=== PATIENT | male | born 1970 | race Caucasian/White ===

== ENCOUNTER 2024-01-21 19:31 | Inpatient (IN) | payer MEDICAID, OTHER ==
[~2024-01-21] VITALS: Ht 170.2 cm; Wt 96.6 kg
[2024-01-21] MEDS: VANCOMYCIN HCL 1000 MG VL IR ONE (19:45)
[2024-01-21 20:05] VITALS: PULSE 107; RESP 22; O2SAT 98
[2024-01-21 20:22] LABS: Basophils # (auto) 0.2 10 ^3/uL (0-0.2); Basophils % (auto) 0.7 % (0.0-2.0); Eosinophils # (auto) 0.1 10 ^3/uL (0-0.8); Eosinophils % (auto) 0.5 % (0.0-7.0); Hematocrit 34.4 % (41.0-53.0); Hemoglobin 11.2 g/dL (13.5-17.5); Lymphocytes # (auto) 1.8 10 ^3/uL (0.4-5.4); Mean Corpuscular Hemoglobin 28.6 pg (28.0-32.0); Mean Corpuscular Hgb Conc. 32.6 g/dL (32.0-36.0); Mean Corpuscular Volume 87.7 fL (80.0-100.0); Monocytes # (auto) 1.1 10 ^3/uL (0-1.3); Neutrophils # (auto) 19.5 10 ^3/uL (1.6-8.6); Neutrophils % (auto) 85.8 % (37.0-80.0); Red Blood Cells 3.92 10^6/uL (4.5-5.90); Red Cell Distribution Width 13.1 % (11.8-14.3); White Blood Cell 22.7 10^3/uL (4.4-10.8)
[2024-01-21 20:39] LABS: Alanine Aminotransferase 12 U/L (7-40); Albumin 4.1 g/dL (3.2-4.8); Alkaline Phosphatase 116 U/L (46-116); Anion Gap 10 (5-15); Aspartate Aminotransferase 17 U/L (13-40); BUN/Creatinine Ratio 11.8 (10.0-20.0); Blood Urea Nitrogen 14 mg/dL (9-23); Calcium 9.2 mg/dL (8.5-10.1); Carbon Dioxide 21 mmol/L (20-30); Chloride 107 mmol/L (98-107); Glucose 161 mg/dL (74-106); Potassium 3.7 mmol/L (3.5-5.1); Sodium 138 mmol/L (136-145)
[2024-01-21 20:40] LABS: Bilirubin, Total 0.4 mg/dL (0.2-1.0); Total Protein 7.6 g/dL (5.7-8.2)
[2024-01-21] MEDS: InsuLIN REG 1unit/0.01ml Soln (100units/ml) IV ONE (21:32)
[2024-01-21] MEDS: SODIUM CHLORIDE 0.9% 1,000 ML IV ONE (21:40)
[2024-01-21] MEDS: CLINDAMYCIN 900MG IV 50 ML IV ONE (21:40)
[2024-01-21] MEDS ORDERED: ONDANSETRON HCL 4 MG/2 ML VIAL IV PRN (22:15)
[2024-01-21] MEDS ORDERED: DEXTROSE (50%) 50ML SYRG IV PRN (22:15)
[2024-01-21] MEDS ORDERED: DOCUSATE SOD 100 MG CAP PO PRN (22:15)
[2024-01-21] MEDS ORDERED: VANCOMYCIN PER PHARMACY 0 MG IV SCH (22:15)
[2024-01-21] MEDS ORDERED: ACETAMINOPHEN 325 MG TAB PO PRN (22:15)
[2024-01-21] MEDS ORDERED: MORPHINE SULFATE INJ 2 MG/ml SYRG IV PRN ×2 (22:15→23:00)
[2024-01-21] MEDS ORDERED: HYDROcodone-ACET 5/325MG TAB PO PRN (22:15)
[2024-01-21] MEDS: PIPERACILLIN-TAZOB 3.375GM 100 ML IV ONE (22:27)
[2024-01-21] MEDS ORDERED: NITROGLYCERIN 0.4 MG SL TAB SL PRN (23:00)
[2024-01-21] MEDS: VANCOMYCIN 1GM/200ML 200 ML IV ONE ×2 (23:20→23:46)
[2024-01-21] MEDS: SODIUM CHLORIDE 0.9% 1,000 ML IV SCH (23:46)
[2024-01-22] VITALS (10 sets, daily range): BP systolic 139–171; BP diastolic 70–96; PULSE 83–89; RESP 17–20; TEMP 97.7–98.6; O2SAT 95–98
[2024-01-22] MEDS ORDERED: guaiFENesin-DM 100/10mg/5ml SYR PO PRN (00:30)
[2024-01-22 01:29] LABS: Urine Bacteria None Seen /hpf (None Seen)
[2024-01-22 01:38] LABS: Urine Blood 1+ /uL (Negative); Urine Clarity Clear (Clear); Urine Color Light-Yellow (Yellow); Urine Protein, UAD 2+ (Negative); Urine Specific Gravity 1.027 (1.001-1.035); Urine Urobilinogen Normal (Negative); Urine WBC 1 /hpf (0 - 3)
[2024-01-22 05:46] LABS: Basophils # (auto) 0 10 ^3/uL (0-0.2); Basophils % (auto) 0.2 % (0.0-2.0); Eosinophils # (auto) 0.2 10 ^3/uL (0-0.8); Eosinophils % (auto) 1.2 % (0.0-7.0); Hematocrit 29.5 % (41.0-53.0); Hemoglobin 9.6 g/dL (13.5-17.5); Lymphocytes # (auto) 1.8 10 ^3/uL (0.4-5.4); Mean Corpuscular Hemoglobin 28.2 pg (28.0-32.0); Mean Corpuscular Hgb Conc. 32.5 g/dL (32.0-36.0); Mean Corpuscular Volume 86.6 fL (80.0-100.0); Monocytes # (auto) 1.1 10 ^3/uL (0-1.3); Monocytes % (auto) 7.1 % (0.0-12.0); Neutrophils # (auto) 11.9 10 ^3/uL (1.6-8.6); Neutrophils % (auto) 79.5 % (37.0-80.0); Red Blood Cells 3.41 10^6/uL (4.5-5.90); Red Cell Distribution Width 13.2 % (11.8-14.3)
[2024-01-22] MEDS: CLINDAMYCIN 600MG IV 50 ML IV SCH (05:55)
[2024-01-22 06:02] LABS: Albumin 3.2 g/dL (3.2-4.8); Alkaline Phosphatase 94 U/L (46-116); Anion Gap 11 (5-15); Aspartate Aminotransferase 18 U/L (13-40); BUN/Creatinine Ratio 12.3 (10.0-20.0); Blood Urea Nitrogen 13 mg/dL (9-23); Calcium 8.3 mg/dL (8.5-10.1); Carbon Dioxide 19 mmol/L (20-30); Chloride 109 mmol/L (98-107); Glucose 119 mg/dL (74-106); Potassium 3.5 mmol/L (3.5-5.1); Sodium 139 mmol/L (136-145)
[2024-01-22] MEDS: InsuLIN REG 1unit/0.01ml Soln (100units/ml) SC SCH ×2 (06:02→21:44)
[2024-01-22] MEDS: ACCU-CHEK COMFORT CURVE STRIP VI SCH (06:02)
[2024-01-22 06:03] LABS: Bilirubin, Total 0.3 mg/dL (0.2-1.0); Total Protein 5.9 g/dL (5.7-8.2)
[2024-01-22 06:05] LABS: Alanine Aminotransferase < 9 U/L (7-40)
[2024-01-22] MEDS: ENOXAPARIN SOD 40 MG/0.4 ML SYRINGE SC SCH (09:14)
[2024-01-22] MEDS: VANCOMYCIN 1GM/200ML 200 ML IV SCH (10:59)
[2024-01-22] MEDS: hydrALAZINE HCL 20 MG/ML VL IV ONE (11:00)
[2024-01-22] MEDS ORDERED: LISI-275 PO (11:53)
[2024-01-22] MEDS ORDERED: ATOR20TA PO (11:53)
[2024-01-22] MEDS ORDERED: EMPA1TAB3 PO (11:53)
[2024-01-22] MEDS ORDERED: ASPI325T6 PO (11:53)
[2024-01-23] VITALS (8 sets, daily range): BP systolic 145–172; BP diastolic 75–92; PULSE 78–90; RESP 17–20; TEMP 97.9–98.4; O2SAT 95–97
[2024-01-23 07:23] LABS: Basophils # (auto) 0 10 ^3/uL (0-0.2); Basophils % (auto) 0.2 % (0.0-2.0); Eosinophils # (auto) 0.2 10 ^3/uL (0-0.8); Eosinophils % (auto) 1.9 % (0.0-7.0); Hematocrit 31.2 % (41.0-53.0); Hemoglobin 10.2 g/dL (13.5-17.5); Lymphocytes % (auto) 15.7 % (10.0-50.0); Mean Corpuscular Hemoglobin 28.6 pg (28.0-32.0); Mean Corpuscular Hgb Conc. 32.9 g/dL (32.0-36.0); Mean Corpuscular Volume 87.1 fL (80.0-100.0); Monocytes # (auto) 0.9 10 ^3/uL (0-1.3); Monocytes % (auto) 7.3 % (0.0-12.0); Neutrophils # (auto) 9.6 10 ^3/uL (1.6-8.6); Neutrophils % (auto) 74.9 % (37.0-80.0); Red Blood Cells 3.58 10^6/uL (4.5-5.90); White Blood Cell 12.9 10^3/uL (4.4-10.8)
[2024-01-23 07:37] LABS: Albumin 3.2 g/dL (3.2-4.8); Alkaline Phosphatase 99 U/L (46-116); Anion Gap 8 (5-15); Aspartate Aminotransferase 18 U/L (13-40); BUN/Creatinine Ratio 13.8 (10.0-20.0); Bilirubin, Total 0.2 mg/dL (0.2-1.0); Blood Urea Nitrogen 12 mg/dL (9-23); Calcium 8.7 mg/dL (8.5-10.1); Carbon Dioxide 20 mmol/L (20-30); Chloride 110 mmol/L (98-107); Glucose 131 mg/dL (74-106); Potassium 3.7 mmol/L (3.5-5.1); Sodium 138 mmol/L (136-145)
[2024-01-23 07:43] LABS: Alanine Aminotransferase < 9 U/L (7-40)
[2024-01-23] MEDS: hydrALAZINE HCL 20 MG/ML VL IV ONE ×2 (09:17→13:09)
[2024-01-23] MEDS: LISINOPRIL 5 MG TAB PO SCH (09:17)
[2024-01-23] MEDS: PIPERACILLIN-TAZOB 3.375GM 100 ML IV SCH (15:28)
[2024-01-23] MEDS: DAKINS HALF STR 0.25% (NaHypochlorite) 473 ML TOPICAL SOL TOP SCH ×2 (17:43→21:48)
[2024-01-24] VITALS (8 sets, daily range): BP systolic 136–172; BP diastolic 70–92; PULSE 76–85; RESP 18–20; TEMP 98–98.8; O2SAT 95–100
[2024-01-24 06:51] LABS: Basophils # (auto) 0 10 ^3/uL (0-0.2); Basophils % (auto) 0.4 % (0.0-2.0); Eosinophils # (auto) 0.3 10 ^3/uL (0-0.8); Eosinophils % (auto) 2.5 % (0.0-7.0); Hematocrit 30.8 % (41.0-53.0); Hemoglobin 10.3 g/dL (13.5-17.5); Lymphocytes # (auto) 1.6 10 ^3/uL (0.4-5.4); Lymphocytes % (auto) 15.2 % (10.0-50.0); Mean Corpuscular Hgb Conc. 33.3 g/dL (32.0-36.0); Mean Corpuscular Volume 87.1 fL (80.0-100.0); Monocytes # (auto) 0.8 10 ^3/uL (0-1.3); Monocytes % (auto) 7.6 % (0.0-12.0); Neutrophils # (auto) 8.1 10 ^3/uL (1.6-8.6); Neutrophils % (auto) 74.3 % (37.0-80.0); Red Blood Cells 3.54 10^6/uL (4.5-5.90); Red Cell Distribution Width 12.9 % (11.8-14.3); White Blood Cell 10.8 10^3/uL (4.4-10.8)
[2024-01-24 07:36] LABS: Alanine Aminotransferase 12 U/L (7-40); Albumin 3.2 g/dL (3.2-4.8); Alkaline Phosphatase 98 U/L (46-116); Anion Gap 8 (5-15); Aspartate Aminotransferase 22 U/L (13-40); BUN/Creatinine Ratio 10.5 (10.0-20.0); Blood Urea Nitrogen 10 mg/dL (9-23); CRP High Sensitivity 5.84 mg/dL (<1.0); Calcium 8.7 mg/dL (8.5-10.1); Carbon Dioxide 21 mmol/L (20-30); Chloride 108 mmol/L (98-107); Glucose 179 mg/dL (74-106); Potassium 3.6 mmol/L (3.5-5.1); Sodium 137 mmol/L (136-145)
[2024-01-24 07:37] LABS: Bilirubin, Total 0.2 mg/dL (0.2-1.0)
[2024-01-24 07:38] LABS: Total Protein 6.1 g/dL (5.7-8.2)
[2024-01-24] MEDS: hydrALAZINE HCL 20 MG/ML VL IV PRN (08:13)
[2024-01-24] MEDS ORDERED: DAKINS HALF STR 0.25% (NaHypochlorite) 473 ML TOPICAL SOL TOP SCH (10:00)
[2024-01-24] MEDS: AMPICILLIN & SULBACTAM SODIUM 3 GM in SODIUM CHL 0.9% 100 ML IV SCH (13:22)
[2024-01-25] VITALS (7 sets, daily range): BP systolic 118–170; BP diastolic 53–90; PULSE 81–90; RESP 18–20; TEMP 98–99.1; O2SAT 94–95
[2024-01-25 06:42] LABS: Basophils # (auto) 0.1 10 ^3/uL (0-0.2); Basophils % (auto) 0.6 % (0.0-2.0); Eosinophils # (auto) 0.2 10 ^3/uL (0-0.8); Eosinophils % (auto) 1.9 % (0.0-7.0); Hematocrit 31.6 % (41.0-53.0); Hemoglobin 10.3 g/dL (13.5-17.5); Lymphocytes % (auto) 17.9 % (10.0-50.0); Mean Corpuscular Hemoglobin 28.2 pg (28.0-32.0); Mean Corpuscular Hgb Conc. 32.6 g/dL (32.0-36.0); Mean Corpuscular Volume 86.4 fL (80.0-100.0); Monocytes # (auto) 0.8 10 ^3/uL (0-1.3); Monocytes % (auto) 7.4 % (0.0-12.0); Neutrophils # (auto) 8.2 10 ^3/uL (1.6-8.6); Neutrophils % (auto) 72.2 % (37.0-80.0); Red Blood Cells 3.65 10^6/uL (4.5-5.90); White Blood Cell 11.3 10^3/uL (4.4-10.8)
[2024-01-25 06:46] LABS: Chloride 109 mmol/L (98-107); Potassium 3.8 mmol/L (3.5-5.1); Sodium 139 mmol/L (136-145)
[2024-01-25 06:47] LABS: Anion Gap 9 (5-15); Carbon Dioxide 21 mmol/L (20-30)
[2024-01-25 06:48] LABS: Calcium 8.6 mg/dL (8.5-10.1)
[2024-01-25 06:53] LABS: Blood Urea Nitrogen 13 mg/dL (9-23); Glucose 164 mg/dL (74-106)
[2024-01-25] MEDS: LISINOPRIL 20 MG TAB PO SCH (07:53)
[2024-01-26] VITALS (9 sets, daily range): BP systolic 144–170; BP diastolic 79–91; PULSE 82–87; RESP 16–20; TEMP 97.3–98.3; O2SAT 94–100
[2024-01-26 07:00] LABS: Basophils # (auto) 0 10 ^3/uL (0-0.2); Basophils % (auto) 0.3 % (0.0-2.0); Eosinophils # (auto) 0.2 10 ^3/uL (0-0.8); Eosinophils % (auto) 2.4 % (0.0-7.0); Hematocrit 28.3 % (41.0-53.0); Hemoglobin 9.5 g/dL (13.5-17.5); Lymphocytes # (auto) 1.9 10 ^3/uL (0.4-5.4); Lymphocytes % (auto) 18.1 % (10.0-50.0); Mean Corpuscular Hemoglobin 29.4 pg (28.0-32.0); Mean Corpuscular Hgb Conc. 33.5 g/dL (32.0-36.0); Mean Corpuscular Volume 87.5 fL (80.0-100.0); Monocytes # (auto) 0.8 10 ^3/uL (0-1.3); Monocytes % (auto) 7.8 % (0.0-12.0); Neutrophils # (auto) 7.3 10 ^3/uL (1.6-8.6); Neutrophils % (auto) 71.4 % (37.0-80.0); Red Blood Cells 3.23 10^6/uL (4.5-5.90); White Blood Cell 10.2 10^3/uL (4.4-10.8)
[2024-01-26 07:14] LABS: INR 1.1 (0.9-1.15); Partial Thromboplastin Time 30.6 SEC (24.5-34.5); Prothrombin Time 11.6 sec (9.3-11.8)
[2024-01-26 07:20] LABS: Anion Gap 8 (5-15); Carbon Dioxide 22 mmol/L (20-30); Chloride 108 mmol/L (98-107); Potassium 3.7 mmol/L (3.5-5.1); Sodium 138 mmol/L (136-145)
[2024-01-26 07:21] LABS: Calcium 8.4 mg/dL (8.5-10.1)
[2024-01-26 07:26] LABS: BUN/Creatinine Ratio 11.3 (10.0-20.0); Blood Urea Nitrogen 9 mg/dL (9-23); Glucose 139 mg/dL (74-106)
[2024-01-26 12:23] LABS: Basophils # (auto) 0.1 10 ^3/uL (0-0.2); Eosinophils # (auto) 0.2 10 ^3/uL (0-0.8); Eosinophils % (auto) 1.5 % (0.0-7.0); Hematocrit 29.5 % (41.0-53.0); Hemoglobin 9.8 g/dL (13.5-17.5); Lymphocytes # (auto) 1.6 10 ^3/uL (0.4-5.4); Lymphocytes % (auto) 16.1 % (10.0-50.0); Mean Corpuscular Hemoglobin 28.8 pg (28.0-32.0); Mean Corpuscular Hgb Conc. 33.1 g/dL (32.0-36.0); Mean Corpuscular Volume 86.7 fL (80.0-100.0); Monocytes # (auto) 0.6 10 ^3/uL (0-1.3); Monocytes % (auto) 6.1 % (0.0-12.0); Neutrophils # (auto) 7.7 10 ^3/uL (1.6-8.6); Neutrophils % (auto) 75.3 % (37.0-80.0); Red Blood Cells 3.41 10^6/uL (4.5-5.90); Red Cell Distribution Width 12.8 % (11.8-14.3); White Blood Cell 10.2 10^3/uL (4.4-10.8)
[2024-01-26] MEDS ORDERED: GLYCOPYRROLATE 0.2 MG/ML 1ML VIAL ONE (14:06)
[2024-01-26] MEDS ORDERED: DexAMETHasone SOD PHOS 10MG/1ML VIAL INJ ONE (14:06)
[2024-01-26] MEDS ORDERED: ONDANSETRON HCL 4 MG/2 ML VIAL ONE (14:06)
[2024-01-26] MEDS ORDERED: KETAMINE 50mg/ML 1ml syringe ONE (14:06)
[2024-01-26] MEDS ORDERED: KETOROLAC TROMETH 30 MG/ML 1ML VIAL ONE (14:06)
[2024-01-26] MEDS ORDERED: PROPOFOL 10 MG/ML 20 ML IV ONE ×2 (14:06→14:54)
[2024-01-26] MEDS ORDERED: LIDOCAINE 1% INJ PF 5ML AMP ONE (14:06)
[2024-01-26] MEDS ORDERED: HYDROmorphone HCL 2 MG/ML VL/or syr IV PRN (15:45)
[2024-01-26] MEDS ORDERED: ONDANSETRON HCL 4 MG/2 ML VIAL IV PRN (15:45)
[2024-01-26] MEDS ORDERED: fentaNYL CITRATE 100 MCG/2 ML VL IV PRN (15:45)
[2024-01-26] MEDS ORDERED: LABETALOL HCL 5 MG/ML 4ML SYRINGE IV PRN (15:45)
[2024-01-26] MEDS ORDERED: ePHEDrine SULFATE 50 MG/ML AMP IV PRN (15:45)
[2024-01-26] MEDS ORDERED: FLUMAZENIL 0.1 MG/ML INJ 10ML MDV IV PRN (15:45)
[2024-01-26] MEDS ORDERED: NALOXONE HCL 0.4 MG/ML VIAL IV PRN (15:45)
[2024-01-26] MEDS ORDERED: hydrALAZINE HCL 20 MG/ML VL IV PRN (15:45)
[2024-01-26] MEDS: ceFAZolin 2 GM/D5W50ml 50 ML IV ONE (16:20)
[2024-01-26] MEDS: NIFEdipine ER 30 MG TAB PO SCH (17:13)
[2024-01-27 01:00] VITALS: BP 138/81; PULSE 77; RESP 20; TEMP 97; O2SAT 93
[2024-01-27 05:00] VITALS: BP 138/76; PULSE 75; RESP 20; TEMP 97.1; O2SAT 95
[2024-01-27 06:43] LABS: Anion Gap 7 (5-15); Carbon Dioxide 24 mmol/L (20-30); Chloride 107 mmol/L (98-107); Sodium 138 mmol/L (136-145)
[2024-01-27 06:44] LABS: Calcium 8.3 mg/dL (8.5-10.1)
[2024-01-27 06:49] LABS: BUN/Creatinine Ratio 17.6 (10.0-20.0); Blood Urea Nitrogen 16 mg/dL (9-23)
[2024-01-27 06:52] LABS: Glucose 302 mg/dL (74-106)
[2024-01-27 09:00] VITALS: BP 144/82; PULSE 78; RESP 18; TEMP 97.7; O2SAT 96
[2024-01-27 13:00] VITALS: BP 153/86; PULSE 94; RESP 18; TEMP 97.7; O2SAT 95
[2024-01-27 17:00] VITALS: BP 121/70; PULSE 83; RESP 18; TEMP 98; O2SAT 95
[2024-01-27 21:00] VITALS: BP 122/80; PULSE 80; RESP 18; TEMP 98.4; O2SAT 95
[2024-01-28 01:00] VITALS: BP 125/73; PULSE 74; RESP 16; TEMP 98.8; O2SAT 100
[2024-01-28 05:00] VITALS: BP 152/83; PULSE 77; RESP 16; TEMP 97.8; O2SAT 100
[2024-01-28 07:42] LABS: Basophils # (auto) 0 10 ^3/uL (0-0.2); Basophils % (auto) 0.2 % (0.0-2.0); Eosinophils # (auto) 0.2 10 ^3/uL (0-0.8); Eosinophils % (auto) 1.6 % (0.0-7.0); Hematocrit 28.4 % (41.0-53.0); Hemoglobin 9.5 g/dL (13.5-17.5); Lymphocytes # (auto) 2.9 10 ^3/uL (0.4-5.4); Mean Corpuscular Hemoglobin 29.1 pg (28.0-32.0); Mean Corpuscular Hgb Conc. 33.5 g/dL (32.0-36.0); Mean Corpuscular Volume 86.9 fL (80.0-100.0); Monocytes # (auto) 0.6 10 ^3/uL (0-1.3); Monocytes % (auto) 5.9 % (0.0-12.0); Neutrophils % (auto) 62.3 % (37.0-80.0); Red Blood Cells 3.27 10^6/uL (4.5-5.90); Red Cell Distribution Width 13.1 % (11.8-14.3); White Blood Cell 9.7 10^3/uL (4.4-10.8)
[2024-01-28 08:00] VITALS: PULSE 76; RESP 18
[2024-01-28 09:00] VITALS: BP 147/87; PULSE 76; RESP 18; TEMP 98; O2SAT 97
[2024-01-28] MEDS ORDERED: LISI20TA56 PO (11:07)
[2024-01-28] MEDS ORDERED: NIFE1TAB31 PO (11:07)
[2024-01-28 12:14] LABS: Basophils # (auto) 0 10 ^3/uL (0-0.2); Basophils % (auto) 0.4 % (0.0-2.0); Eosinophils # (auto) 0.1 10 ^3/uL (0-0.8); Eosinophils % (auto) 1.2 % (0.0-7.0); Hematocrit 29.9 % (41.0-53.0); Hemoglobin 9.6 g/dL (13.5-17.5); Lymphocytes # (auto) 2.2 10 ^3/uL (0.4-5.4); Lymphocytes % (auto) 24.4 % (10.0-50.0); Mean Corpuscular Hemoglobin 28.1 pg (28.0-32.0); Mean Corpuscular Hgb Conc. 32.2 g/dL (32.0-36.0); Mean Corpuscular Volume 87.1 fL (80.0-100.0); Monocytes # (auto) 0.5 10 ^3/uL (0-1.3); Monocytes % (auto) 5.5 % (0.0-12.0); Neutrophils # (auto) 6.1 10 ^3/uL (1.6-8.6); Neutrophils % (auto) 68.5 % (37.0-80.0); Red Blood Cells 3.43 10^6/uL (4.5-5.90); Red Cell Distribution Width 13.2 % (11.8-14.3); White Blood Cell 8.9 10^3/uL (4.4-10.8)
[2024-01-28 13:00] VITALS: BP 157/85; PULSE 76; RESP 18; TEMP 97.9; O2SAT 96
[2024-01-28] MEDS: LIDOCAINE 1% (LOCAL ANESTH.) PF 5ml SDV ID ONE (16:37)
[2024-01-28 18:37] VITALS: BP 147/87; TEMP 36.6
[2024-01-28] MEDS ORDERED: SODIUM CHLOR 0.9% PF (SALINE LOCK) 10ML VIAL/SYR IV SCH (22:00)
== END 2024-01-28 20:00 | disposition home health service (06) | DRG 710 ==
LOC: ER 19:31 → EDBD 19:31 → OVERFLOW 22:48 → EAST 01-22 02:06
PROVIDERS: ADMIT Nurse Practitioner Acute Care; ATTEND Nurse Practitioner Acute Care
PROC: 0Y6N0ZD Detachment at Left Foot, Partial 4th Ray, Open Approach (ICD-10-PCS; principal; 2024-01-26 14:49)
PROC: 02HV33Z Insertion of Infusion Device into Superior Vena Cava, Percutaneous Approach (ICD-10-PCS; 2024-01-28)
PROC: B548ZZA Ultrasonography of Superior Vena Cava, Guidance (ICD-10-PCS; 2024-01-28)
DX: A41.9 Sepsis, unspecified organism (principal); M72.6 Necrotizing fasciitis; E11.52 Type 2 diabetes mellitus with diabetic peripheral angiopathy with gangrene; E11.621 Type 2 diabetes mellitus with foot ulcer; L03.116 Cellulitis of left lower limb; L97.529 Non-pressure chronic ulcer of other part of left foot with unspecified severity; I10 Essential (primary) hypertension; E66.9 Obesity, unspecified; W11.XXXA Fall on and from ladder, initial encounter; B95.2 Enterococcus as the cause of diseases classified elsewhere; E11.69 Type 2 diabetes mellitus with other specified complication; M86.8X7 Other osteomyelitis, ankle and foot; Z82.5 Family history of asthma and other chronic lower respiratory diseases; Z82.49 Family history of ischemic heart disease and other diseases of the circulatory system; Y93.89 Activity, other specified; Y92.89 Other specified places as the place of occurrence of the external cause; Y99.8 Other external cause status; Z68.33 Body mass index [BMI] 33.0-33.9, adult
CPT/HCPCS: 36415; 36569; 71045; 73630; 73718; 80048; 80053; 80202; 81001; 82010; 82962; 83036; 83605; 85025; 85610; 85730; 86141; 87040; 87070; 87075; 87077; 87081; 87186; 87205; 96365; 96367; G0378; J1100; J1815; J1885; J2405; J2543; J2704; J3490

== ENCOUNTER → 2024-06-22 | Outpatient (CLI) | payer MEDICAID ==
[~2024-06-22] MED LIST: ASPI325T6 PO; ATOR20TA PO; EMPA1TAB3 PO; LISI20TA56 PO; NIFE1TAB31 PO
[2024-06-22 14:08] LABS: Alanine Aminotransferase 26 U/L (7-40); Albumin 4.5 g/dL (3.2-4.8); Alkaline Phosphatase 70 U/L (46-116); Anion Gap 8 (5-15); Aspartate Aminotransferase 19 U/L (13-40); Blood Urea Nitrogen 40 mg/dL (9-23); Calcium 10.1 mg/dL (8.7-10.4); Carbon Dioxide 23 mmol/L (20-31); Chloride 110 mmol/L (98-107); Glucose 181 mg/dL (74-106); Potassium 5.2 mmol/L (3.5-5.1); Sodium 141 mmol/L (136-145)
[2024-06-22 14:10] LABS: Bilirubin, Total 0.7 mg/dL (0.2-1.0); Total Protein 7.5 g/dL (5.7-8.2)
== END | disposition home or self-care (01) ==
LOC: LAB 12:48
PROVIDERS: ATTEND Internal Medicine
DX: I10 Essential (primary) hypertension (principal); N52.1 Erectile dysfunction due to diseases classified elsewhere
CPT/HCPCS: 36415; 80053; 84403

== ENCOUNTER → 2024-07-03 | Outpatient (CLI) | payer MEDICAID ==
[2024-07-03 12:06] LABS: Alanine Aminotransferase 28 U/L (7-40); Albumin 4.5 g/dL (3.2-4.8); Alkaline Phosphatase 73 U/L (46-116); Anion Gap 4 (5-15); Aspartate Aminotransferase 21 U/L (13-40); BUN/Creatinine Ratio 23.8 (10.0-20.0); Bilirubin, Total 0.5 mg/dL (0.2-1.0); Blood Urea Nitrogen 30 mg/dL (9-23); Calcium 9.9 mg/dL (8.7-10.4); Carbon Dioxide 30 mmol/L (20-31); Chloride 103 mmol/L (98-107); Glucose 207 mg/dL (74-106); Potassium 4.9 mmol/L (3.5-5.1); Sodium 137 mmol/L (136-145)
[2024-07-03 12:07] LABS: Total Protein 7.5 g/dL (5.7-8.2)
== END | disposition home or self-care (01) ==
LOC: LAB 10:46
PROVIDERS: ATTEND Internal Medicine
DX: E11.621 Type 2 diabetes mellitus with foot ulcer (principal); E11.69 Type 2 diabetes mellitus with other specified complication; E11.29 Type 2 diabetes mellitus with other diabetic kidney complication; R80.9 Proteinuria, unspecified
CPT/HCPCS: 36415; 80053

== ENCOUNTER → 2024-09-26 | Outpatient (CLI) | payer MEDICAID ==
[2024-09-26 09:43] LABS: Urine Bacteria None Seen /hpf (None Seen)
[2024-09-26 10:05] LABS: Hematocrit 37.5 % (41.0-53.0); Hemoglobin 12.5 g/dL (13.5-17.5); Mean Corpuscular Hemoglobin 29.4 pg (28.0-32.0); Mean Corpuscular Hgb Conc. 33.4 g/dL (32.0-36.0); Mean Corpuscular Volume 87.9 fL (80.0-100.0); Platelet Count (auto) 226 10^3/uL (140-450); Red Blood Cells 4.26 10^6/uL (4.5-5.90); Red Cell Distribution Width 13.5 % (11.8-14.3); White Blood Cell 8.8 10^3/uL (4.4-10.8)
[2024-09-26 10:12] LABS: Band Neutrophils % (manual) 0; Basophils % (manual) 0 (0.0-2.0); Blast Cells 0; Metamyelocytes % 0; Myelocytes % 0; Promyelocytes % 0; Reactive Lymphocytes 0
[2024-09-26 10:38] LABS: Urine Blood 1+ /uL (Negative); Urine Clarity Clear (Clear); Urine Color Light-Yellow (Yellow); Urine Protein, UAD 2+ (Negative); Urine Specific Gravity 1.016 (1.001-1.035); Urine Squamous Epithelial Cell FEW /hpf (<5); Urine Urobilinogen Normal (Negative); Urine WBC <1 /hpf (0 - 3); Urine pH 5.5 (5.0-9.0)
[2024-09-26 11:10] LABS: Creatinine, Urine 84.16 mg/dL (30.0-125.0)
[2024-09-26 11:12] LABS: Alanine Aminotransferase 17 U/L (7-40); Alkaline Phosphatase 68 U/L (46-116); Anion Gap 8 (5-15); Aspartate Aminotransferase 24 U/L (13-40); BUN/Creatinine Ratio 20.4 (10.0-20.0); Blood Urea Nitrogen 21 mg/dL (9-23); Calcium 9.6 mg/dL (8.7-10.4); Carbon Dioxide 23 mmol/L (20-31); Potassium 4.6 mmol/L (3.5-5.1); Sodium 138 mmol/L (136-145); Triglycerides 92 mg/dL (< 150)
[2024-09-26 11:13] LABS: Bilirubin, Total 0.6 mg/dL (0.2-1.0); Cholesterol 187 mg/dL (< 200); HDL Cholesterol 49 mg/dL (40-59); Total Protein 7.1 g/dL (5.7-8.2)
[2024-09-26 11:14] LABS: Chloride 107 mmol/L (98-107); Glucose 222 mg/dL (74-106); LDL Cholesterol 136 mg/dL (< 100)
[2024-09-26 11:58] LABS: Eosinophils % (manual) 2 (0-7); Lymphocytes % (manual) 27 (10.0-50.0); Monocytes % (manual) 3 (0-12); Platelet Estimate Adequate
== END | disposition home or self-care (01) ==
LOC: LAB 09:22
PROVIDERS: ATTEND Internal Medicine
DX: Z00.01 Encounter for general adult medical examination with abnormal findings (principal); E11.69 Type 2 diabetes mellitus with other specified complication; D64.9 Anemia, unspecified; I73.9 Peripheral vascular disease, unspecified; N40.1 Benign prostatic hyperplasia with lower urinary tract symptoms; E11.49 Type 2 diabetes mellitus with other diabetic neurological complication; M72.6 Necrotizing fasciitis
CPT/HCPCS: 36415; 80053; 80061; 81001; 82043; 82570; 83036; 84403; 84439; 84443; 85007; 85027

== ENCOUNTER → 2024-11-28 | Outpatient (CLI) | payer MEDICAID ==
[2024-11-28 12:11] LABS: Basophils # (auto) 0 10 ^3/uL (0-0.2); Basophils % (auto) 0.5 % (0.0-2.0); Eosinophils # (auto) 0.1 10 ^3/uL (0-0.8); Eosinophils % (auto) 1.8 % (0.0-7.0); Hematocrit 43.5 % (41.0-53.0); Hemoglobin 14.3 g/dL (13.5-17.5); Lymphocytes # (auto) 2.3 10 ^3/uL (0.4-5.4); Lymphocytes % (auto) 30.8 % (10.0-50.0); Mean Corpuscular Volume 88.1 fL (80.0-100.0); Monocytes # (auto) 0.5 10 ^3/uL (0-1.3); Monocytes % (auto) 7.1 % (0.0-12.0); Neutrophils # (auto) 4.5 10 ^3/uL (1.6-8.6); Neutrophils % (auto) 59.8 % (37.0-80.0); Platelet Count (auto) 227 10^3/uL (140-450); Red Blood Cells 4.94 10^6/uL (4.5-5.90); Red Cell Distribution Width 13.8 % (11.8-14.3); White Blood Cell 7.6 10^3/uL (4.4-10.8)
[2024-11-28 12:32] LABS: Calcium 9.8 mg/dL (8.7-10.4); Chloride 107 mmol/L (98-107); Potassium 4.8 mmol/L (3.5-5.1); Sodium 140 mmol/L (136-145)
[2024-11-28 12:33] LABS: Anion Gap 8 (5-15); Carbon Dioxide 25 mmol/L (20-31)
[2024-11-28 12:38] LABS: BUN/Creatinine Ratio 24.3 (10.0-20.0)
[2024-11-28 12:39] LABS: Blood Urea Nitrogen 35 mg/dL (9-23); Glucose 169 mg/dL (74-106)
== END | disposition home or self-care (01) ==
LOC: LAB 11:59
DX: E11.3522 Type 2 diabetes mellitus with proliferative diabetic retinopathy with traction retinal detachment involving the macula, left eye (principal)
CPT/HCPCS: 36415; 80048; 85025